=== PATIENT | male | born 1970 | race Hispanic/Latino ===

== ENCOUNTER 2016-12-14 19:54 | Inpatient (IN) | payer OTHER ==
--- NOTE | 2016-12-14 20:07 | ED PDOC ---
"Arrival/HPI - General Chief Complaint: Cough, Cold, Congestion Time Seen by Provider: 12/14/16 19:58 Historian: Patient - History of Present Illness Narrative History of Present Illness (Text): 12/14/16 20:00 Sima Dean is a 46 year old male, whose past medical history includes asthma , hyperglycemia, and hypertension, who presents to the emergency department complaining of a continuous cough and rhinorrhea since 3 days ago. Patient reports he feels pain on the right side of his throat, right ear, and has problem swallowing. He notes having an appointment with his PMD on Thursday but his symptoms became worse and needed to be evaluated. Patient denies fever, nausea, vomiting, headache, chest pain, abdominal pain, or other complaints. PMD: Dr. Alok Willis Time/Duration: < week (3 days) Symptom Onset: Sudden Symptom Course: Worsening Modifying Factors (Text): difficulty swallowing Associated Symptoms (Text): throat pain on right side, rhinorrhea, nasal congestion, cough Past Medical History - Provider Review Nursing Documentation Reviewed: Yes - Infectious Disease Hx of Infectious Diseases: None - Pulmonary Hx Asthma: Yes - Renal Hx Renal Disorder: (hypoglycemia) - Endocrine/Metabolic Other/Comment: hypoglycemia - Hematological/Oncological Hx Blood Transfusions: No - Integumentary Hx Dermatological Disorder: Yes (MRSA) - Musculoskeletal/Rheumatological Hx Falls: No - Psychiatric Hx Depression: No Hx Emotional Abuse: No Hx Physical Abuse: No Hx Substance Use: No - Anesthesia Hx Anesthesia Reactions: Yes (vomiting) - Suicidal Assessment Feels Threatened In Home Enviroment: No Family/Social History - Physician Review Nursing Documentation Reviewed: Yes Family/Social History: Unknown Family HX Smoking Status: Never Smoked Hx Alcohol Use: Yes Hx Substance Use: No Hx Substance Use Treatment: No Allergies/Home Meds Allergies/Adverse Reactions: Allergies peanut Allergy (Verified 12/14/16 20:04) URTICARIA Penicillins Allergy (Verified 12/14/16 20:04) RASH Home Medications: Home Meds Medication Instructions Recorded Confirmed Albuterol Sulfate [Albuterol Hfa] 0.09 mg IH DAILY PRN 08/17/11 12/14/16 Fluticasone Furoate [Arnuity 100 mcg IH DAILY 12/14/16 12/14/16 Ellipta] Fluticasone Propionate [Flovent 50 mcg MELLISSA DAILY 12/14/16 12/14/16 Diskus] Levocetirizine Dihydrochloride 5 mg PO DAILY PRN 12/14/16 12/14/16 [Xyzal] Metoclopramide HCl [Reglan] 10 mg PO BID 12/14/16 12/14/16 Metoprolol Succinate [Toprol XL] 50 mg PO DAILY 12/14/16 12/14/16 Pantoprazole Sodium [Protonix] 40 mg PO DAILY 12/14/16 12/14/16 Promethazine/Codeine 10 ml PO Q6 PRN 12/14/16 12/14/16 [Codeine/Promethazine 10 MG/5 Ml-6.25 MG/5 Ml] Tiotropium Br/Olodaterol HCl 4 gm IH DAILY 12/14/16 12/14/16 [Stiolto Respimat Inhal [place]] amLODIPine [Norvasc] 5 mg PO DAILY 12/14/16 12/14/16 methylPREDNISolone 4 mg PO DAILY 12/14/16 12/14/16 [Methylprednisolone] Review of Systems - Physician Review All systems were reviewed & negative as marked: Yes - Review of Systems Constitutional: absent: Fevers ENT: Sore Throat, Rhinorrhea, Sinus Congestion Respiratory: Cough Cardiovascular: absent: Chest Pain Gastrointestinal: absent: Abdominal Pain, Diarrhea, Nausea, Vomiting Genitourinary Male: absent: Dysuria Neurological: absent: Headache, Dizziness Physical Exam Vital Signs Reviewed: Yes Vital Signs Temp Pulse Resp BP Pulse Ox 12/14/16 19:55 98.8 F 113 H 20 126/90 97 Temperature: Afebrile Blood Pressure: Normal Pulse: Tachycardic Respiratory Rate: Normal Appearance: Positive for: Ill-Appearing, Other (patient with intermittent barky cough; no stridor) Pain Distress: None Mental Status: Positive for: Alert and Oriented X 3 - Systems Exam Head: Present: Atraumatic, Normocephalic Pupils: Present: PERRL Conjunctiva: Present: Normal Ears: Present: Normal, NORMAL TM. No: Erythema Pharnyx: Present: ERYTHEMA, EXUDATE, TONSILS ENLARGED (right tonsil enlarged with pus and swelling ), Uvular Deviation (mild), Muffled/Hoarse Voice ( slightly muffled). No: Peritonsilar Swelling, Strider, Soft Palate/Uvular Edema Neck: Present: Normal Range of Motion. No: Meningeal Signs Respiratory/Chest: Present: Clear to Auscultation, Good Air Exchange. No: Respiratory Distress, Accessory Muscle Use Cardiovascular: Present: Regular Rate and Rhythm, Normal S1, S2. No: Murmurs Abdomen: Present: Normal Bowel Sounds. No: Tenderness, Distention, Peritoneal Signs Upper Extremity: Present: Normal Inspection. No: Cyanosis, Edema Lower Extremity: Present: Normal Inspection. No: Edema Neurological: Present: GCS=15, CN II-XII Intact, Speech Normal Skin: Present: Warm, Dry, Normal Color. No: Rashes Psychiatric: Present: Alert, Oriented x 3, Normal Insight, Normal Concentration Medical Decision Making ED Course and Treatment: 12/14/16 Impression: 46 year old male with noted history with noted exam on tonsillar findings. Plan: -- CT neck -- Chest X-ray -- Labs -- Atrovent, Decadron, Toradol, Xopenex, and Sodium Chloride -- Clindamycin, Vancomycin -- Racemic epinephrine -- Reassess and disposition Progress Notes: 12/14/16 23:16 Patient with noted history - patient's cough improved with racemic epinephrine. Labs with significant leukocytosis of 27K; CT results as noted below with significant abscess with mass erffect on airway; given mass effect on airway, will admit to the ICU for close monitoring. Case was discussed with ENT, Dr. Carr and his resident as well; patient will be seen early in the morning for drainage. Case also discussed with Dr. Juan Willis for admission on his service. Case also discussed with Dr. Hodgson for admission to the ICU. CT Neck with IV Contrast: FINDINGS: Nasopharynx: Unremarkable. Oropharynx: Decreased attenuation within the right lingual tonsil measuring 1.9 x 3.6 x 3.9 cm (anterior to posterior by medial to lateral by cranial to caudal dimension ), findings consistent with a tonsillar abscess. Mass effect on the airway is detected. Hypopharynx: Unremarkable. SIMA DEAN | Final Radiology Report CONFIDENTIALITY STATEMENT This report is intended only for use by the referring physician, and only in accordance with law. If you received this in error, call [phone]. Page 2 of 2 Larynx: Normal epiglottis. Trachea: Unremarkable. Retropharyngeal space: No retropharyngeal abscess. Submandibular/parotid glands: Glands are normal in size. Thyroid: Unremarkable. Bones/joints: No acute fracture. Soft tissues: As above. Vasculature: No acute findings. Lymph nodes: Enlarged right-sided submandibular nodes are detected, the largest measuring 17 mm in short axis dimension. Lung apices: Unremarkable as visualized. IMPRESSION: Right-sided tonsillar abscess with measurements as detailed above. Mass effect on the airway is detected. - Critical Care Critical Care Minutes: 30 minutes - Lab Interpretations Lab Results: 12/14/16 20:15 12/14/16 20:15 Lab Results 12/14/16 20:20: Grp A Beta Strep Ag Negative 12/14/16 20:15: Sodium 142, Potassium 4.2, Chloride 100, Carbon Dioxide 32, Anion Gap 14, BUN 16, Creatinine 1.3, Est GFR ( Amer) > 60, Est GFR (Non- Af Amer) 60, Random Glucose 106, Calcium 9.6, Total Bilirubin 0.6, AST 26, ALT 37, Alkaline Phosphatase 88, Lactate Dehydrogenase 420, Total Creatine Kinase 90 , Troponin I < 0.01, NT-Pro-B Natriuret Pep 135, Total Protein 8.0, Albumin 4.6 , Globulin 3.4, Albumin/Globulin Ratio 1.4, Lipase 99 12/14/16 20:15: WBC 27.1 H* D, RBC 5.19, Hgb 14.3, Hct 43.6, MCV 84.0, MCH 27.6 , MCHC 32.8, RDW 13.8, Plt Count 321, MPV 9.0, Gran % 86.8 H, Lymph % (Auto) 5.3 L, [place] % (Auto) 7.7 H, Eos % (Auto) 0.1 L, Baso % (Auto) 0.1, Gran # 23.54 H, Lymph # 1.4, [place] # 2.1 H, Eos # 0.0, Baso # 0.02, Neutrophils % (Manual) 73 H, Band Neutrophils % 5 H, Lymphocytes % (Manual) 17 L, Monocytes % (Manual) 5, Platelet Evaluation Normal 12/14/16 20:15: PT 11.4, INR 1.06, APTT 28.8 I have reviewed the lab results: Yes - RAD Interpretation Radiology Orders: 12/14/16 20:09 NECK SOFT TISSUE W/CONTRAST [CT] Stat 12/14/16 20:10 CHEST PORTABLE [RAD] Stat - Medication Orders Current Medication Orders: Discontinued Medications Dexamethasone (Decadron Inj) 10 mg IVP STAT STA Stop: 12/14/16 20:11 Last Admin: 12/14/16 20:32 Dose: 10 mg IVP Administration Document 12/14/16 20:32 JOL (Rec: 12/14/16 20:32 JOL [id number]) Charges for Administration # of IVP Administrations 1 Sodium Chloride (Sodium Chloride 0.9%) 1,000 mls @ 999 mls/hr IV .Q1H1M STA Stop: 12/14/16 21:12 Last Admin: 12/14/16 20:30 Dose: 999 mls/hr eMAR Start Stop Document 12/14/16 20:30 JOL (Rec: 12/14/16 20:32 JOL [id number]) Intravenous Solution Start Date 12/14/16 Start Time 20:32 End Date 12/14/16 End time 21:32 Total Infusion Time 60 Clindamycin Phosphate 600 mg/ (Sodium Chloride) 54 mls @ 108 mls/hr IVPB STAT STA PRN Reason: Protocol Stop: 12/14/16 21:08 Last Admin: 12/14/16 21:35 Dose: 108 mls/hr eMAR Start Stop Document 12/14/16 21:35 JOL (Rec: 12/14/16 22:14 JOL [id number]) Intravenous Solution Start Date 12/14/16 Start Time 21:35 End Date 12/14/16 End time 22:05 Total Infusion Time 30 Vancomycin HCl 1 gm/ Sodium (Chloride) 250 mls @ 133.333 mls/hr IV STAT STA PRN Reason: Protocol Stop: 12/14/16 22:34 Last Admin: 12/14/16 22:16 Dose: 133.333 mls/hr eMAR Start Stop Document 12/14/16 22:16 JOL (Rec: 12/14/16 22:16 JOL [id number]) Intravenous Solution Start Date 12/14/16 Start Time 22:16 End Date 12/14/16 End time 23:46 Total Infusion Time 90 Ipratropium Norco (Atrovent) 0.5 mg IH STAT STA Stop: 12/14/16 20:13 Last Admin: 12/14/16 20:33 Dose: 0.5 mg Ketorolac Tromethamine (Toradol) 30 mg IVP STAT STA Stop: 12/14/16 20:11 Last Admin: 12/14/16 20:32 Dose: 30 mg MAR Pain Assessment Document 12/14/16 20:32 JOL (Rec: 12/14/16 20:32 JOL [id number]) Pain Reassessment Is this a pain reassessment? No Sleep Is patient sleeping during reassessment? No Pain Scale Used Pain Scale Used Numeric Location Pain Location Body Cessation Systems Outreach Specialist Description Intensity of Pain at present 7 IVP Administration Document 12/14/16 20:32 JOL (Rec: 12/14/16 20:32 JOL [id number]) Charges for Administration # of IVP Administrations 1 Re-Assess: [facility] Pain Assessment Document 12/14/16 21:32 JOL (Rec: 12/14/16 22:16 JOL [id number]) Pain Reassessment Is this a pain reassessment? Yes Sleep Is patient sleeping during reassessment? No Presence of Pain Presence of Pain No Levalbuterol HCl (Xopenex) 1.25 mg IH STAT STA Stop: 12/14/16 20:13 Last Admin: 12/14/16 20:33 Dose: 1.25 mg Racepinephrine (Racepinephrine 2.25% Inhl Soln) 0.5 ml IH STAT STA Stop: 12/14/16 21:44 Last Admin: 12/14/16 21:50 Dose: 0.5 ml - Scribe Statement The provider has reviewed the documentation as recorded by the Lemuel Saxena Provider Scribe Attestation: All medical record entries made by the Scribe were at my direction and personally dictated by me. I have reviewed the chart and agree that the record accurately reflects my personal performance of the history, physical exam, medical decision making, and the department course for this patient. I have also personally directed, reviewed, and agree with the discharge instructions and disposition. Disposition/Present on Arrival - Present on Arrival Any Indicators Present on Arrival: No History of DVT/PE: No History of Uncontrolled Diabetes: No Urinary Catheter: No History of Decub. Ulcer: No History Surgical Site Infection Following: None - Disposition Have Diagnosis and Disposition been Completed?: Yes Diagnosis: Tonsillar abscess Disposition: HOSPITALIZED Disposition Time: 21:30 Patient Plan: Admission, ICU Condition: SERIOUS Forms: [employer] ([place]gas[place])"
[2016-12-14] MEDS ORDERED: Ipratropium 0.02% Inhal Soln (0.5 mg/2.5 ml) UD IH STA (20:12)
[2016-12-14] MEDS ORDERED: Sodium Chloride 0.9% 1,000 ML IV STA (20:12)
[2016-12-14] MEDS ORDERED: Levalbuterol 1.25 MG/3 ML Inhal Soln UD IH STA (20:12)
[2016-12-14 20:36] LABS: BASO # 0.02 K/mm3 (0.0-2.0); BASO % 0.1 % (0.0-3.0); EOS % 0.1 % (1.5-5.0); GRAN # 23.54 (1.4-6.5); GRAN % 86.8 % (50.0-68.0); HEMATOCRIT 43.6 % (42.0-52.0); LYMPH # 1.4 (1.2-3.4); LYMPH % 5.3 % (22.0-35.0); MEAN CORPUSCULAR HEMOGLOBIN 27.6 pg (25.0-35.0); MEAN CORPUSCULAR HGB CONC 32.8 g/dl (31.0-37.0); MONO # 2.1 (0.1-0.6); MONO % 7.7 % (1.0-6.0); PLATELET COUNT 321 10^3/uL (120.0-450.0); RED CELL DISTRIBUTION WIDTH 13.8 % (11.5-14.5)
[2016-12-14 20:38] LABS: WHITE BLOOD COUNT 27.1 10^3/ul (4.5-11.0)
[2016-12-14 20:42] LABS: INR 1.06 (0.93-1.08); PARTIAL THROMBOPLASTIN TIME 28.8 Seconds (23.7-30.8)
[2016-12-14 20:44] LABS: ALB/GLOB RATIO 1.4 (1.1-1.8); ALKALINE PHOSPHATASE 88 U/L (38-126); ALT/SGPT 37 U/L (7-56); AST/SGOT 26 U/L (17-59); BILIRUBIN,TOTAL 0.6 mg/dL (0.2-1.3); BLOOD UREA NITROGEN 16 mg/dL (7-21); CALCIUM 9.6 mg/dL (8.4-10.5); CARBON DIOXIDE 32 mmol/L (21-33); CHLORIDE 100 mmol/L (98-107); GFR AFRICAN-AMERICAN > 60; GLUCOSE,RANDOM 106 mg/dL (70-110); LIPASE 99 U/L (23-300); POTASSIUM 4.2 mmol/L (3.6-5.0); SODIUM 142 mmol/L (132-148)
[2016-12-14 21:00] LABS: TROPONIN I < 0.01 ng/mL
[2016-12-14] MEDS ORDERED: Iodixanol 320 MG/ML 100 ML BOTTLE IV ONE (21:11)
[2016-12-14] MEDS ORDERED: Racepinephrine 2.25% Inhal Soln 0.5 ML UD IH STA (21:43)
[2016-12-14] MEDS ORDERED: Racepinephrine 2.25% Inhal Soln 0.5 ML UD ONE (21:46)
[2016-12-14 22:22] LABS: BAND 5 % (0-2); NEUTROPHIL 73 % (50.0-70.0); PLATELET ESTIMATE NORMAL (NORMAL)
--- NOTE | 2016-12-14 23:00 | CT ---
EXAM: CT Neck With Intravenous Contrast CLINICAL HISTORY: 46 years old, male; Pain; Throat pain; Additional info: Change in voice, SOB - R/O peritonsillar abscess TECHNIQUE: Axial computed tomography images of the neck with intravenous contrast. All CT scans at this facility use one or more dose reduction techniques, viz.: automated exposure control; ma/kV adjustment per patient size (including targeted exams where dose is matched to indication; i.e. head); or iterative reconstruction technique. Sagittal reformatted images were created and reviewed. CONTRAST: 100 mL of OMNI 350 administered intravenously. COMPARISON: No relevant prior studies available. FINDINGS: Nasopharynx: Unremarkable. Oropharynx: Decreased attenuation within the right lingual tonsil measuring 1.9 x 3.6 x 3.9 cm (anterior to posterior by medial to lateral by cranial to caudal dimension ), findings consistent with a tonsillar abscess. Mass effect on the airway is detected. Hypopharynx: Unremarkable. Larynx: Normal epiglottis. Trachea: Unremarkable. Retropharyngeal space: No retropharyngeal abscess. Submandibular/parotid glands: Glands are normal in size. Thyroid: Unremarkable. Bones/joints: No acute fracture. Soft tissues: As above. Vasculature: No acute findings. Lymph nodes: Enlarged right-sided submandibular nodes are detected, the largest measuring 17 mm in short axis dimension. Lung apices: Unremarkable as visualized. IMPRESSION: Right-sided tonsillar abscess with measurements as detailed above. Mass effect on the airway is detected.
--- NOTE | 2016-12-15 00:04 | CP.PCM.CON ---
Addendum entered and electronically signed by Miryam Conroy DO 12/15/16 04:20: Patient started on Morphine and Toradol was discontinued Original Note: <Miryam Conroy - Last Filed: 12/15/16 01:21> History of Present Illness - History of Present Illness History of Present Illness: 46yo male PMHx HTN, asthma, and hypoglycemia presents with worsening neck pain and headache for 1 week. Patient reports he felt like his "sinuses were on fire " and he complained of a 11/10 headache that was global and sharp in nature. He was taking prednisone at home which did not help. Patient reported worsening sore throat on the right side and some right ear pain. He denied any fever, chills, drooling, difficulty eating/drinking liquids, trismus, and foul breath. Patient did admit to a chronic nonproductive cough and SOB which he associated with his history of asthma. Patient also denied any chills, dizziness, chest pain, palpitations, abd pain, nausea, vomiting, bowel/bladder complaints, pain/ swelling in his legs bilaterally. He denied any recent travel and sick contacts. PMD: Lazaro - last seen >1 mo ago PMHx: HTN, asthma, and hypoglycemia PSurgHx: RLE abscess? Family Hx: denies Social Hx: denies tobacco and drug use- drinks EtOH socially over the weekends Allergy: peanuts, PCN Meds: pls see medical record Review of Systems - Constitutional Constitutional: As Per HPI, Headache. absent: Chills, Fever - EENT Eyes: As Per HPI. absent: Change in Vision Ears: As Per HPI, Ear Pain (Right ear). absent: Ear Discharge, Dizziness Nose/Mouth/Throat: As Per HPI, Hoarsness, Sore Throat, Neck Pain. absent: Dysphagia, Halitosis, Lip Swelling, Odynophagia, Tongue Swelling - Cardiovascular Cardiovascular: As Per HPI. absent: Chest Pain, Dyspnea, Edema - Respiratory Respiratory: As Per HPI, Cough, Dyspnea - Gastrointestinal Gastrointestinal: As Per HPI. absent: Abdominal Pain, Constipation, Diarrhea, Nausea, Vomiting - Genitourinary Genitourinary: As Per HPI. absent: Dysuria - Musculoskeletal Musculoskeletal: As Per HPI. absent: Numbness, Tingling - Integumentary Integumentary: As Per HPI. absent: Rash - Neurological Neurological: As Per HPI, Headaches. absent: Dizziness, Numbness, Tingling - Psychiatric Psychiatric: As Per HPI, Anxiety - Hematologic/Lymphatic Hematologic: As Per HPI. absent: Easy Bleeding, Easy Bruising Past Patient History - Infectious Disease Hx of Infectious Diseases: None - Past Social History Smoking Status: Never Smoked - PULMONARY Hx Asthma: Yes - RENAL Hx Chronic Kidney Disease: (hypoglycemia) - ENDOCRINE/METABOLIC Other/Comment: hypoglycemia - HEMATOLOGICAL/ONCOLOGICAL Hx Blood Transfusions: No - INTEGUMENTARY Hx Dermatological Problems: Yes (MRSA) - MUSCULOSKELETAL/RHEUMATOLOGICAL Hx Falls: No - PSYCHIATRIC Hx Depression: No Hx Emotional Abuse: No Hx Physical Abuse: No Hx Substance Use: No - SURGICAL HISTORY Hx Surgeries: Yes - ANESTHESIA Hx Anesthesia Reactions: Yes (vomiting) Meds Allergies/Adverse Reactions: Allergies Allergy/AdvReac Type Severity Reaction Status Date / Time Iodine and Iodide Containing Allergy Intermediate COUGH Verified 12/15/16 06:17 Produc peanut Allergy URTICARIA Verified 12/14/16 20:04 Penicillins Allergy RASH Verified 12/14/16 20:04 Physical Exam - Constitutional Appears: Non-toxic, No Acute Distress - Head Exam Head Exam: ATRAUMATIC, NORMOCEPHALIC - Eye Exam Eye Exam: EOMI, Normal appearance, PERRL. absent: Conjunctival injection, Scleral icterus - ENT Exam ENT Exam: Mucous Membranes Dry - Expanded ENT Exam Expanded Mouth exam: muffled voice. absent: drooling, trismus Throat exam: Tonsillar Erythema, Tonsillar Exudate - Neck Exam Neck exam: Positive for: Full Rom - Respiratory Exam Respiratory Exam: Clear to Auscultation Bilateral, NORMAL BREATHING PATTERN. absent: Rales, Rhonchi, Wheezes, Respiratory Distress - Cardiovascular Exam Cardiovascular Exam: REGULAR RHYTHM, RRR, +S1, +S2. absent: Systolic Murmur - GI/Abdominal Exam GI & Abdominal Exam: Normal Bowel Sounds, Soft. absent: Firm, Guarding, Tenderness - Extremities Exam Extremities exam: Positive for: normal capillary refill, normal inspection, pedal pulses present. Negative for: pedal edema - Neurological Exam Neurological exam: Alert, Oriented x3 - Psychiatric Exam Psychiatric exam: Anxious - Skin Skin Exam: Diaphoretic, Intact, Normal Color Results - Vital Signs Recent Vital Signs: Last Vital Signs Temp 98.8 F 12/14/16 19:55 Pulse 113 H 12/14/16 19:55 Resp 20 12/14/16 19:55 BP 126/90 12/14/16 19:55 Pulse Ox 97 12/14/16 19:55 - Labs Result Diagrams: 12/14/16 20:15 12/14/16 20:15 Assessment & Plan - Assessment and Plan (Free Text) Assessment: 46yo male PMHx HTN, asthma, and hypoglycemia presents with worsening neck pain and headache for 1 week. Plan: R Tonsillar Abscess - Neck CT with IV contrast: R sided tonsillar abscess 1.9 x 3.6 x 3.9cm with mass effect on the airway - Clindamycin 600mg ivpb q8 - Toradol 30mg ivp q6 prn pain - Group A beta strep Ag: negative - f/u blood culture - f/u throat culture - Head above 30 degrees - Monitor breathing - ENT Dr. Carr consulted- patient for OR in the AM Hx of HTN - hold home meds Hx of asthma - continue home meds Hx of hypoglycemia - D5NS @ 100cc/hr - Accucheck GI ppx: Protonix 40mg ivp qdaily; Florastor 1 tab po bid DVT ppx: SCDs Fluids: D5NS @ 100cc/hr Diet: NPO for OR in the AM Case discussed with Dr. Rema Conroy PGY2 <Rema SALAZAR,Jason - Last Filed: 12/15/16 12:49> Meds - Medications Medications: Current Medications Albuterol Sulfate (Albuterol 0.083% Inhal [place] (2.5 Mg/3 Ml) Ud) 2.5 mg IH DAILY PRN PRN Reason: Shortness of Breath Dexamethasone (Decadron Inj) 4 mg IVP Q6 [facility] Stop: 12/16/16 12:01 Fluticasone Propionate (Flonase) 1 actuation NS DAILY [facility] Last Admin: 12/15/16 09:49 Dose: 1 spray Clindamycin Phosphate 600 mg/ (Sodium Chloride) 54 mls @ 102 mls/hr IVPB Q8 [facility] PRN Reason: Protocol Last Admin: 12/15/16 05:04 Dose: 102 mls/hr Dextrose/Sodium Chloride (Dextrose 5%/0.9% Ns 1000 Ml) 1,000 mls @ 85 mls/hr IV .[id number] [facility] Lactobacillus Acidophilus (Bacid Acidophilus) 1 cap PO BID [facility] Morphine Sulfate (Morphine) 1 mg IVP Q6H PRN PRN Reason: Pain, moderate (4-7) Non-Formulary Medication (Fluticasone Furoate [Arnuity Ellipta]) 100 mcg IH DAILY [facility] Pantoprazole Sodium (Protonix Inj) 40 mg IVP DAILY [facility] Last Admin: 12/15/16 09:51 Dose: 40 mg Results - Vital Signs Recent Vital Signs: Last Vital Signs Temp 98.7 F 12/15/16 01:23 Pulse 89 12/15/16 06:00 Resp 17 12/15/16 01:23 BP 132/69 12/15/16 01:23 Pulse Ox 96 12/15/16 01:23 - Labs Result Diagrams: 12/15/16 05:00 12/15/16 05:00 Labs: Laboratory Results - last 24 hr 12/15/16 12/15/16 05:00 05:00 WBC 25.6 H* RBC 4.76 Hgb 13.1 L Hct 40.1 L MCV 84.2 MCH 27.5 MCHC 32.7 RDW 14.0 Plt Count 314 MPV 9.5 Gran % 95.2 H Lymph % (Auto) 2.9 L [place] % (Auto) 1.9 Eos % (Auto) 0.0 L Baso % (Auto) 0.0 Gran # 24.35 H Lymph # 0.7 L Walker # 0.5 Eos # 0.0 Baso # 0.01 Sodium 142 Potassium 4.6 Chloride 105 Carbon Dioxide 24 Anion Gap 18 BUN 21 Creatinine 1.0 Est GFR ( Amer) > 60 Est GFR (Non-Af Amer) > 60 Random Glucose 150 H Calcium 9.1 Phosphorus 4.4 Magnesium 2.2 Total Bilirubin 0.4 AST 21 ALT 31 Alkaline Phosphatase 83 Total Protein 7.1 Albumin 3.9 Globulin 3.1 Albumin/Globulin Ratio 1.3 Attending/Attestation - Attestation I have personally seen and examined this patient.: Yes I have fully participated in the care of the patient.: Yes I have reviewed all pertinent clinical information: Yes Notes (Text): -I agree with the above ICU consult note completed by the resident physician with the following additions and/or changes: -The patient is a 46 year old man with a history of asthma and hypoglycemia, being admitted to the ICU for right tonsillar abscess. ReneN.T. plans to perform an I.D. early tomorrow morning. Will keep pt NPO and on D5NS IVF's. Will also keep HOB>45 degrees. Empiric IV Clindamycin.
[2016-12-15] MEDS ORDERED: Sodium Chloride 0.9% 1,000 ML IV SCH (00:45)
[2016-12-15] MEDS ORDERED: DiphenhydrAMINE 50 mg/ml Inj IVP ONE (00:54)
[2016-12-15] MEDS ORDERED: Albuterol 0.083% Inhal Sol (2.5 mg/3 mL) UD IH PRN (01:15)
[2016-12-15] MEDS: Dextrose 5%/0.9% NS 1,000 ML IV SCH ×4 (01:16→21:54)
[2016-12-15] MEDS ORDERED: Morphine 4 mg/ml ISec IVP PRN (04:19)
[2016-12-15 06:03] LABS: BASO # 0.01 K/mm3 (0.0-2.0); GRAN # 24.35 (1.4-6.5); GRAN % 95.2 % (50.0-68.0); HEMATOCRIT 40.1 % (42.0-52.0); LYMPH # 0.7 (1.2-3.4); LYMPH % 2.9 % (22.0-35.0); MEAN CELL VOLUME 84.2 fl (80.0-105.0); MEAN CORPUSCULAR HEMOGLOBIN 27.5 pg (25.0-35.0); MEAN CORPUSCULAR HGB CONC 32.7 g/dl (31.0-37.0); MEAN PLATELET VOLUME 9.5 fl (7.0-11.0); MONO # 0.5 (0.1-0.6); MONO % 1.9 % (1.0-6.0)
[2016-12-15 06:21] LABS: WHITE BLOOD COUNT 25.6 10^3/ul (4.5-11.0)
[2016-12-15 06:47] LABS: ALB/GLOB RATIO 1.3 (1.1-1.8); ALKALINE PHOSPHATASE 83 U/L (38-126); ALT/SGPT 31 U/L (7-56); AST/SGOT 21 U/L (17-59); BILIRUBIN,TOTAL 0.4 mg/dL (0.2-1.3); BLOOD UREA NITROGEN 21 mg/dL (7-21); CALCIUM 9.1 mg/dL (8.4-10.5); CARBON DIOXIDE 24 mmol/L (21-33); CHLORIDE 105 mmol/L (98-107); GFR AFRICAN-AMERICAN > 60; GLUCOSE,RANDOM 150 mg/dL (70-110); MAGNESIUM 2.2 mg/dL (1.7-2.2); PHOSPHOROUS 4.4 mg/dL (2.5-4.5); POTASSIUM 4.6 mmol/L (3.6-5.0); SODIUM 142 mmol/L (132-148); TOTAL PROTEIN 7.1 g/dL (5.8-8.3)
--- NOTE | 2016-12-15 08:52 | RAD ---
HISTORY: Shortness of breath COMPARISON: No prior. FINDINGS: LUNGS: The lungs are well inflated and clear. PLEURA: No significant pleural effusion identified, no pneumothorax apparent. CARDIOVASCULAR: Normal. OSSEOUS STRUCTURES: No significant abnormalities. VISUALIZED UPPER ABDOMEN: Normal. OTHER FINDINGS: None. IMPRESSION: No active pulmonary disease.
[2016-12-15] MEDS: Fluticasone Nasal 50 mcg/Spray NS SCH (09:49)
[2016-12-15] MEDS ORDERED: FLUTICASONE FUROATE 100 MCG IH SCH (10:00)
--- NOTE | 2016-12-15 10:17 | CARD ---
APPROVED REPORT EKG Measurement Heart [id number] <Conclusion> Sinus tachycardia Moderate voltage criteria for LVH, may be normal variant Borderline ECG
--- NOTE | 2016-12-15 11:39 | CP.PCM.PN ---
Subjective - Date & Time of Evaluation Date of Evaluation: 12/15/16 Time of Evaluation: 07:15 - Subjective Subjective: Patient seen and examined, reports to be doing qwell. Patient s/p InD at bedside by ENT, please refer to their note. Tolerated the procedure well, denies sob, dysphagia, fever, chills, cough. Objective - Vital Signs/Intake and Output Vital Signs (last 24 hours): Temp Pulse Resp BP Pulse Ox 98.7 F 89 17 132/69 96 12/15/16 01:23 12/15/16 06:00 12/15/16 01:23 12/15/16 01:23 12/15/16 01:23 - Medications Medications: Current Medications Albuterol Sulfate (Albuterol 0.083% Inhal Lili (2.5 Mg/3 Ml) Ud) 2.5 mg IH DAILY PRN PRN Reason: Shortness of Breath Fluticasone Propionate (Flonase) 1 actuation NS DAILY [facility] Last Admin: 12/15/16 09:49 Dose: 1 spray Clindamycin Phosphate 600 mg/ (Sodium Chloride) 54 mls @ 102 mls/hr IVPB Q8 VELVET PRN Reason: Protocol Last Admin: 12/15/16 05:04 Dose: 102 mls/hr Dextrose/Sodium Chloride (Dextrose 5%/0.9% Ns 1000 Ml) 1,000 mls @ 85 mls/hr IV .[id number] VELVET Lactobacillus Acidophilus (Bacid Acidophilus) 1 cap PO BID VELVET Morphine Sulfate (Morphine) 1 mg IVP Q6H PRN PRN Reason: Pain, moderate (4-7) Non-Formulary Medication (Fluticasone Furoate [Arnuity Ellipta]) 100 mcg IH DAILY [facility] Pantoprazole Sodium (Protonix Inj) 40 mg IVP DAILY [facility] Last Admin: 12/15/16 09:51 Dose: 40 mg - Labs Labs: 12/15/16 05:00 12/15/16 05:00 PT 11.4 Seconds (9.9-11.8) 12/14/16 20:15 INR 1.06 (0.93-1.08) 12/14/16 20:15 APTT 28.8 Seconds (23.7-30.8) 12/14/16 20:15 - Constitutional Appears: Well, Non-toxic, No Acute Distress - Head Exam Head Exam: ATRAUMATIC, NORMAL INSPECTION - Eye Exam Eye Exam: EOMI, Normal appearance - Neck Exam Neck Exam: Full ROM, Normal Inspection - Respiratory Exam Respiratory Exam: Clear to Ausculation Bilateral, NORMAL BREATHING PATTERN - Cardiovascular Exam Cardiovascular Exam: REGULAR RHYTHM, RRR, +S1, +S2 - GI/Abdominal Exam GI & Abdominal Exam: Soft, Normal Bowel Sounds - Extremities Exam Extremities Exam: Normal Inspection Assessment and Plan - Assessment and Plan (Free Text) Assessment: 46yo male a/w R tonsilar abscess Tonsilar Abscess Asthma - currently abfebrile, HD stable - s/p InD at bedside by ENT, tolerated procedure well Recommend: - IV Clindamycin, patient PCN allergic ( NO MRSA risk factors) - Speech swallow eval - Duonebs PRN - follow up ENT - resume diet if passes speech swallow - DVT ppx - GI ppx - transfer to medical floor
[2016-12-15] MEDS ORDERED: Albuterol-Ipratrop 3 mg / 0.5 (3 ml) UD IH PRN (13:23)
--- NOTE | 2016-12-15 15:05 | CARD ---
APPROVED REPORT EKG Measurement Heart [id number] <Conclusion> Normal sinus rhythm
[2016-12-15] MEDS: Dexamethasone 4 mg/1 ml IVP SCH (17:05)
[2016-12-15] MEDS: Lactobacillus Acidophilus 500 MU Cap PO SCH (17:05)
[2016-12-15 18:07] VITALS: RESP 20
--- NOTE | 2016-12-15 18:53 | CON ---
DATE: 12/15/2016 EAR, NOSE, AND THROAT CONSULT REASON FOR CONSULTATION: Peritonsillar abscess. HISTORY OF PRESENT ILLNESS: The patient is a 46-year-old male with history of hypertension, asthma, who presents with right-sided throat pain for apparently one-week. He says that initially he was treated with supportive care at home, however, he had worsening of the pain especially on the right hand side with some difficulty swallowing and therefore, presented to the emergency room for further evaluation and underwent a cath scan, which demonstrated a right peritonsillar abscess and Ear, Nose, and Throat was just consulted for further evaluation. PAST MEDICAL HISTORY: As above. PAST SURGICAL HISTORY: I and D of a lower extremity abscess. ALLERGIES: PENICILLIN AND PEANUTS. SOCIAL HISTORY: Denies tobacco abuse. Social alcohol user. PHYSICAL EXAMINATION GENERAL: The patient is awake, alert and oriented x3, in no acute distress. Slightly muffled quality of voice. VITAL SIGNS: Blood pressure 132/69, temperature 98.7, heart rate 79, respiratory rate 17, saturating 96% on room air. HEENT: Head is atraumatic and normocephalic. Eyes: Extraocular muscles are intact. Normal appearance. No visual changes. Nose, nares patent bilaterally. No apparent discharged noted. Oral cavity: Oropharynx. Very poor dentition. Tonsils with exudates bilaterally. Right tonsil is slightly medialized, but no uvula deviation, some cellulitis noted to the soft palate on the right hand side. NECK: Shotty lymphadenopathy. Trachea midline. No stridor. PROCEDURE: Needle drainage of peritonsillar abscess, the back of the throat was numbed with topical Cetacaine spray and then an 18 gauge needle and a 10 mL syringe was inserted into the right peritonsillar space multiple times. Scant purulent drainage totalling 3-4 mL was removed with resolution of pain on the patient's throat. ASSESSMENT AND PLAN: The patient is a 46-year-old male with right peritonsillar abscess, status post drainage. I discussed with the patient that he should likely stay for another 24 hours with IV antibiotics as well as IV steroids, could continue on Clindamycin IV as well as 4 mg of Decadron every 6 hours. Tomorrow, if the patient continues to improve and is able to swallow and tolerate diet, he could be discharged home on a one week course of oral clindamycin as well as a Medrol Dosepak. He should follow up in the office on Thursday of this week to track resolution of his abscess, as it is possible for these to reaccumulate. This was discussed with him in detail, discussed with the nurse at bedside, discussed with ICU house staff. Thank you for allowing us to participate in this patient's care. Gary Vasquez DO
[2016-12-16] MEDS: Dexamethasone 4 mg/1 ml IVP SCH ×3 (00:40→12:57)
[2016-12-16 06:07] LABS: BASO # 0.01 K/mm3 (0.0-2.0); BASO % 0.1 % (0.0-3.0); GRAN # 13.8 (1.4-6.5); GRAN % 90.4 % (50.0-68.0); HEMATOCRIT 38.4 % (42.0-52.0); LYMPH # 0.9 (1.2-3.4); LYMPH % 5.6 % (22.0-35.0); MEAN CELL VOLUME 84.2 fl (80.0-105.0); MEAN CORPUSCULAR HEMOGLOBIN 27.4 pg (25.0-35.0); MEAN CORPUSCULAR HGB CONC 32.6 g/dl (31.0-37.0); MEAN PLATELET VOLUME 9.3 fl (7.0-11.0); MONO # 0.6 (0.1-0.6); MONO % 3.9 % (1.0-6.0); RED CELL DISTRIBUTION WIDTH 13.9 % (11.5-14.5); WHITE BLOOD COUNT 15.3 10^3/ul (4.5-11.0)
[2016-12-16 06:57] LABS: BLOOD UREA NITROGEN 19 mg/dL (7-21); CARBON DIOXIDE 25 mmol/L (21-33); CHLORIDE 105 mmol/L (95-110); GFR AFRICAN-AMERICAN > 60; GLUCOSE,RANDOM 137 mg/dL (70-110); POTASSIUM 4.7 mmol/L (3.6-5.0); SODIUM 141 mmol/L (132-148)
[2016-12-16] MEDS ORDERED: Pantoprazole 40 mg EC Tab PO SCH (10:00)
[2016-12-16] MEDS: Lactobacillus Acidophilus 500 MU Cap PO SCH ×2 (10:20→18:30)
[2016-12-16] MEDS: Fluticasone Nasal 50 mcg/Spray NS SCH (11:00)
[2016-12-16] MEDS: Dextrose 5%/0.9% NS 1,000 ML IV SCH (14:31)
[2016-12-16 17:03] VITALS: BP 127/87; PULSE 73; TEMP 97.9; O2SAT 94
--- NOTE | 2016-12-17 18:29 | DS ---
HOSPITAL COURSE: This is a 46-year-old male who presented to the emergency room late Thursday night with sore throat and found to have a peritonsillar abscess on CT scan. He was admitted to intensive care and seen on Thursday morning by Dr. Alok Willis as well as by Ear, Nose and Throat hematology oncology consultant surgeon, Dr. Carr. I&D of the abscess was performed. The patient was transferred from ICU at the recommendation of ENT and stayed for an additional 24 hours of IV antibiotics. His diet was increased. He tolerated liquids well and ready for discharge late tonight. He was seen on Thursday evening. He was awake, alert, clear and appropriate, swallowing well with no compromise to his voice or airway. He was afebrile. White count had come down. Prescriptions were called in for Medrol Dosepak as well as for oral clindamycin. He was instructed to see Dr. Carr on Thursday, follow up with us on Thursday, and probable return to work on Thursday. FINAL DISCHARGE DIAGNOSIS: Peritonsillar retropharyngeal abscess. Sumeet Willis MD
== END 2016-12-16 19:13 | disposition home or self-care (01) | DRG 134 ==
LOC: ED 19:54 → ERH 23:12 → CCU 12-15 00:50 → 3RSO 12-15 13:54
PROVIDERS: ADMIT Internal Medicine; ATTEND Internal Medicine
PROC: 0C9PXZZ Drainage of Tonsils, External Approach (ICD-10-PCS; principal; 2016-12-15)
DX: J36 Peritonsillar abscess (principal); R13.10 Dysphagia, unspecified; I12.9 Hypertensive chronic kidney disease with stage 1 through stage 4 chronic kidney disease, or unspecified chronic kidney disease; J45.909 Unspecified asthma, uncomplicated; N18.9 Chronic kidney disease, unspecified; E16.2 Hypoglycemia, unspecified; Z79.899 Other long term (current) drug therapy; Z88.0 Allergy status to penicillin; Z91.010 Allergy to peanuts; R40.2412 Glasgow coma scale score 13-15, at arrival to emergency department; B95.4 Other streptococcus as the cause of diseases classified elsewhere

== ENCOUNTER 2017-07-30 07:15 | Emergency (ER) | payer OTHER ==
[2017-07-30 07:56] VITALS: PULSE 90; TEMP 98
--- NOTE | 2017-07-30 08:07 | ED PDOC ---
Arrival/HPI - General Historian: Patient - History of Present Illness Time/Duration: Prior to Arrival Symptom Onset: Gradual Quality: Aching Severity Level: 7 Activities at Onset: Rest Context: Home - General Chief Complaint: Abnormal Skin Integrity Time Seen by Provider: 07/30/17 07:41 - History of Present Illness Narrative History of Present Illness (Text): 07/30/17 08:08 Patient is a 46 M with history of asthma, hypogylcemia, and hypertension who presents with complaints of right lower leg wound. Patient states yesterday he noticed a pimple on his right lower mid calf , he states he possibly may have scratched it. Does not recall whether it started as a insect bite however states that this morning he woke up and noticed wound had purulent drainage. Denies bleeding from wound aside from blood found on bandaid patient had placed the day prior. Rates pain 7/10, describing it as dull and non radiating. Pain is exacerbated with walking and patient has not taken any pain medication for relief. To note patient did have an abscess on same leg 4 years prior which required I&D; wound at the time was noted to be MRSA (+). (Apolinar Gibbons) Past Medical History - Provider Review Nursing Documentation Reviewed: Yes - Infectious Disease Hx of Infectious Diseases: None - Cardiac Hx Hypertension: Yes - Pulmonary Hx Asthma: Yes - Renal Hx Renal Disorder: (hypoglycemia) - Endocrine/Metabolic Other/Comment: hypoglycemia - Hematological/Oncological Hx Blood Transfusions: No - Integumentary Hx Dermatological Disorder: Yes (MRSA) - Musculoskeletal/Rheumatological Hx Falls: No - Psychiatric Hx Depression: No Hx Emotional Abuse: No Hx Physical Abuse: No Hx Substance Use: No - Surgical History Other/Comment: 2014: Pt. had cellulitis in left leg. Hospitalized in [facility] [place]. - Anesthesia Hx Anesthesia Reactions: Yes (vomiting) - Suicidal Assessment Feels Threatened In Home Enviroment: No Family/Social History - Physician Review Nursing Documentation Reviewed: Yes Family/Social History: Other (non-contributory) Smoking Status: Never Smoked Hx Alcohol Use: Yes Frequency of alcohol use: Socially Hx Substance Use: No Hx Substance Use Treatment: No Allergies/Home Meds Allergies/Adverse Reactions: Allergies Iodine and Iodide Containing Produc Allergy (Intermediate, Verified 07/30/17 07: 32) COUGH Sweating, cold, clammy skin peanut Allergy (Verified 07/30/17 07:32) URTICARIA Penicillins Allergy (Verified 07/30/17 07:32) RASH Home Medications: Home Meds Medication Instructions Recorded Confirmed Albuterol Sulfate [Albuterol 0.09 mg IH DAILY PRN 08/17/11 07/30/17 Sulfate Hfa] Metoprolol Succinate [Toprol XL] 50 mg PO DAILY 12/14/16 07/30/17 amLODIPine [Norvasc] 5 mg PO DAILY 12/14/16 07/30/17 Review of Systems - Review of Systems Constitutional: absent: Fatigue, Fevers Respiratory: absent: SOB, Cough Cardiovascular: absent: Chest Pain, Palpitations Gastrointestinal: absent: Diarrhea, Nausea, Vomiting Musculoskeletal: absent: Arthralgias, Back Pain Skin: Cellulitis. absent: Rash, Laceration, Abscess Neurological: absent: Headache, Dizziness Physical Exam Vital Signs Reviewed: Yes Temperature: Afebrile Blood Pressure: Normal Pulse: Regular Respiratory Rate: Normal Appearance: Positive for: Well-Appearing, Non-Toxic, Comfortable Pain Distress: None Mental Status: Positive for: Alert and Oriented X 3 - Systems Exam Head: Present: Atraumatic, Normocephalic Pupils: Present: PERRL Extroacular Muscles: Present: EOMI Conjunctiva: Present: Normal Mouth: Present: Moist Mucous Membranes Respiratory/Chest: Present: Clear to Auscultation. No: Wheezes, Rhonchi Cardiovascular: Present: Regular Rate and Rhythm, Normal S1, S2. No: Murmurs Abdomen: No: Tenderness, Distention Upper Extremity: Present: Normal Inspection. No: Edema Lower Extremity: Present: NORMAL PULSES, Tenderness (right lower extremity). No : Normal Inspection (cellulitis of right lower extremity), Edema, CALF TENDERNESS, Mane's Sign Neurological: Present: GCS=15, CN II-XII Intact, Speech Normal Skin: Present: Warm, Erythematous (surrounding wound), Other (cellulitis of right lower extremity) Psychiatric: Present: Alert, Oriented x 3, Normal Insight, Normal Concentration Vital Signs Temp Pulse Resp BP Pulse Ox 07/30/17 08:59 90 16 128/75 99 07/30/17 07:54 98.0 F 90 18 125/78 98 Medical Decision Making Re-evaluation Time: 08:30 Reassessment Condition: Re-examined ED Course and Treatment: 05/24/18 08:17 Will give patient prescription for clindamycin for 10 days, patient instructed to return to ED if symptoms do not begin to improve within 3 days. (Apolinar Gibbons) 07/30/17 In agreement with resident note, which includes further HPI details. Patient was seen and evaluated with resident, came up with plan and treatment together. Leg wound has approx 2cm ulcer with mild surrounding cellulitis. No area of fluctuance. Patient denies any fever, chills or bodyaches. No trauma. Will tx with Clindaymycin. Patient is allergic to PCN. Instructed in detail to make sure he takes the abx and to return to the ED if symptoms worsen, if redness worsens, if swelling occurs, if discharge occures, fever occurs or any other concern. ([place] Jay) - Medication Orders Current Medication Orders: Discontinued Medications Clindamycin HCl (Cleocin) 450 mg PO STAT STA PRN Reason: Protocol Stop: 07/30/17 08:51 Last Admin: 07/30/17 08:57 Dose: 450 mg Disposition/Present on Arrival - Present on Arrival Any Indicators Present on Arrival: No History of DVT/PE: No History of Uncontrolled Diabetes: No Urinary Catheter: No History of Decub. Ulcer: No History Surgical Site Infection Following: None - Disposition Have Diagnosis and Disposition been Completed?: Yes Disposition Time: 09:04 Patient Plan: Discharge - Disposition Diagnosis: Cellulitis Disposition: HOME/ ROUTINE Condition: GOOD Discharge Instructions (ExitCare): Cellulitis (ED) Additional Instructions: Mr Dean, thank you for letting us take care of you today. Your provider was Dr. Jay. You were treated for Cellulitis. The emergency medical care you received today was directed at your acute symptoms. If you were prescribed any medication, please fill it and take as directed. It may take several days for your symptoms to resolve. Return to the Emergency Department if your symptoms worsen, do not improve, or if you have any other problems. Make sure to take antibiotics as prescribed. Return to the ED if symptoms worsen , don't improve, worsening and spreading redness, pus draining, fever or any other concern. Please contact your doctor or call one of the physicians/clinics you have been referred to that are listed on the Patient Visit Information form that is included in your discharge packet. Bring any paperwork you were given at discharge with you along with any medications you are taking to your follow up visit. Our treatment cannot replace ongoing medical care by a primary care provider (PCP) outside of the emergency department. Thank you for allowing the [facility] team to be part of your care today. If you had an X-Ray or CT scan: A Radiologist will review the ED reading if any change in treatment is needed we will contact you. If you had a blood, urine, or wound culture: It will take several days for the results, if any change in treatment is needed we will contact you. If you had an STI test: It will take 48 hours for the results. Please call after 1 week if you have not heard back. Prescriptions: Clindamycin [Cleocin] 450 mg PO Q6 10 Days #40 cap Referrals: Wade Willis MD [Primary Care Provider] - Follow up with primary Forms: [employer] (Lao), WORK NOTE
[2017-07-30 09:00] VITALS: BP 128/75; RESP 16; O2SAT 99
== END 2017-07-30 09:07 | disposition home or self-care (01) ==
LOC: ED 07:15
DX: L03.115 Cellulitis of right lower limb (principal); I10 Essential (primary) hypertension

== ENCOUNTER 2018-04-17 10:19 | Emergency (ER) | payer OTHER ==
[2018-04-17 10:26] VITALS: RESP 18; TEMP 97.6; O2SAT 98
--- NOTE | 2018-04-17 10:45 | ED PDOC ---
Arrival/HPI - General Chief Complaint: Lower Extremity Problem/Injury Time Seen by Provider: 04/17/18 10:20 Historian: Patient - History of Present Illness Narrative History of Present Illness (Text): 04/17/18 10:42 A 47 year old male, whose past medical history includes asthma, hypogylcemia, and hypertension, presents to the emergency department complaining of left knee pain for 1 week. Patient reports left knee pain gradually worsened, eventually turning erythematous 2 days ago. Also patient mentions having small "hole" on left knee where white pus and some blood came out when knee became red. Patient denies any injury/trauma, fever, or any other complaints at this time. Denies any past surgeries to left knee. PMD: Dr. Willis 04/18/18 09:44 Past Medical History - Provider Review Nursing Documentation Reviewed: Yes - Infectious Disease Hx of Infectious Diseases: None - Cardiac Hx Hypertension: Yes - Pulmonary Hx Asthma: Yes - Renal Hx Renal Disorder: (hypoglycemia) - Endocrine/Metabolic Other/Comment: hypoglycemia - Hematological/Oncological Hx Blood Transfusions: No - Integumentary Hx Dermatological Disorder: Yes (MRSA) - Musculoskeletal/Rheumatological Hx Falls: No - Psychiatric Hx Depression: No Hx Emotional Abuse: No Hx Physical Abuse: No Hx Substance Use: No - Surgical History Other/Comment: 2014: Pt. had cellulitis in left leg. Hospitalized in [facility] [place]. - Anesthesia Hx Anesthesia Reactions: Yes (vomiting) - Suicidal Assessment Feels Threatened In Home Enviroment: No Family/Social History - Physician Review Nursing Documentation Reviewed: Yes Family/Social History: No Known Family HX Smoking Status: Never Smoked Hx Alcohol Use: Yes Frequency of alcohol use: Socially Hx Substance Use: No Hx Substance Use Treatment: No Allergies/Home Meds Allergies/Adverse Reactions: Allergies Iodine and Iodide Containing Produc Allergy (Intermediate, Verified 04/17/18 10:26) COUGH Sweating, cold, clammy skin peanut Allergy (Verified 04/17/18 10:26) URTICARIA Penicillins Allergy (Verified 04/17/18 10:26) RASH Home Medications: Home Meds Medication Instructions Recorded Confirmed Albuterol Sulfate [Albuterol 0.09 mg IH DAILY PRN 08/17/11 04/17/18 Sulfate Hfa] Metoprolol Succinate XL [Toprol XL] 50 mg PO DAILY 12/14/16 04/17/18 amLODIPine [Norvasc] 5 mg PO DAILY 12/14/16 04/17/18 Review of Systems - Physician Review All systems were reviewed & negative as marked: Yes - Review of Systems Constitutional: Night Sweats (last night). absent: Fevers Musculoskeletal: Other (left knee pain with erythema, limited ROM to knee secon hiren to pain.) Physical Exam Vital Signs Reviewed: Yes Vital Signs Temp Pulse Resp BP Pulse Ox 04/17/18 10:22 97.6 F 97 H 18 126/86 98 Temperature: Afebrile Blood Pressure: Normal Pulse: Regular Respiratory Rate: Normal Appearance: Positive for: Well-Appearing, Non-Toxic, Comfortable Pain Distress: None Mental Status: Positive for: Alert and Oriented X 3 - Systems Exam Head: Present: Atraumatic, Normocephalic Pupils: Present: PERRL Extroacular Muscles: Present: EOMI Conjunctiva: Present: Normal Mouth: Present: Moist Mucous Membranes Neck: Present: Normal Range of Motion Respiratory/Chest: Present: Clear to Auscultation, Good Air Exchange. No: Respiratory Distress, Accessory Muscle Use Cardiovascular: Present: Regular Rate and Rhythm, Normal S1, S2. No: Murmurs Abdomen: No: Tenderness, Distention, Peritoneal Signs Back: Present: Normal Inspection Upper Extremity: Present: Normal Inspection. No: Cyanosis, Edema Lower Extremity: Present: Erythema (left knee) Neurological: Present: GCS=15, CN II-XII Intact, Speech Normal Skin: Present: Warm, Dry, Normal Color. No: Rashes Psychiatric: Present: Alert, Oriented x 3, Normal Insight, Normal Concentration Medical Decision Making ED Course and Treatment: 04/17/18 10:46 Impression: 47 year old male with left knee pain and erythema. Plan: -- Left Knee X-Ray -- Reassess and disposition Prior Visits: Notes and results from previous visits were reviewed. Patient was last seen here on 07/30/2017 for pimple on right lower mid calf. Patient was discharged home. Progress Notes: 04/17/2018 12:39 Left Knee X-Ray IMPRESSION: There is soft tissue swelling anterior to the patella with small collections of air. Findings suspicious for bursitis or cellulitis. Dictator: Wade Briggs MD 04/18/18 09:44 case discussed with pts ortho dr terrell who eval pt bedside. aspriated bursa. suspects infected bursa, culture sent. states pt can be dc home with antibiotic trial. strct return precautions. at this time no pain with rom, low clincal suspcion for septic knee - RAD Interpretation Radiology Orders: 04/17/18 10:38 KNEE LEFT 2 VIEWS (AP & LAT) [RAD] Stat - Scribe Statement The provider has reviewed the documentation as recorded by the Scribe Ivon Simons Provider Scribe Attestation: All medical record entries made by the Scribe were at my direction and personally dictated by me. I have reviewed the chart and agree that the record accurately reflects my personal performance of the history, physical exam, medical decision making, and the department course for this patient. I have also personally directed, reviewed, and agree with the discharge instructions and disposition. Disposition/Present on Arrival - Present on Arrival Any Indicators Present on Arrival: No History of DVT/PE: No History of Uncontrolled Diabetes: No Urinary Catheter: No History of Decub. Ulcer: No History Surgical Site Infection Following: None - Disposition Have Diagnosis and Disposition been Completed?: Yes Diagnosis: Bursitis Disposition: HOME/ ROUTINE Disposition Time: 12:00 Condition: STABLE Discharge Instructions (ExitCare): Bursitis (DC) Additional Instructions: follow up with ortho tommorow. return to er with any worsening. Prescriptions: Clindamycin [Cleocin] 300 mg PO TID #30 cap Referrals: Wade Danielle DO [Staff Provider] - Follow up with primary Forms: [employer] (Lao), WORK NOTE
[2018-04-17 11:13] LABS: BASO # 0.02 K/mm3 (0.0-2.0); BASO % 0.1 % (0.0-3.0); EOS # 0.4 (0.0-0.7); EOS % 2.4 % (1.5-5.0); HEMOGLOBIN 14.1 g/dL (14.0-18.0); LYMPH # 1.2 (1.2-3.4); LYMPH % 6.7 % (22.0-35.0); MEAN CELL VOLUME 84.5 fl (80.0-105.0); MEAN CORPUSCULAR HEMOGLOBIN 27.3 pg (25.0-35.0); MEAN CORPUSCULAR HGB CONC 32.3 g/dl (31.0-37.0); MEAN PLATELET VOLUME 9.2 fl (7.0-11.0); MONO # 1.2 (0.1-0.6); MONO % 6.6 % (1.0-6.0); RBC 5.17 10^6/uL (3.5-6.1); RED CELL DISTRIBUTION WIDTH 14.3 % (11.5-14.5); WHITE BLOOD COUNT 17.5 10^3/uL (4.5-11.0)
[2018-04-17 11:15] LABS: ALBUMIN 4.3 g/dL (3.0-4.8); BLOOD UREA NITROGEN 11 mg/dL (7-21); CALCIUM 9.7 mg/dL (8.4-10.5); GFR NON-AFRICAN AMERICAN > 60
[2018-04-17 11:16] LABS: ALB/GLOB RATIO 1.3 (1.1-1.8); ALT/SGPT 18 U/L (7-56); AST/SGOT 21 U/L (17-59); INR 1.15; PARTIAL THROMBOPLASTIN TIME 31.1 Seconds (26.9-38.3)
[2018-04-17] MEDS ORDERED: Tmp-Smz 800 mg-160 mg DS Tab PO STA (11:27)
[2018-04-17] MEDS ORDERED: Bupivacaine 0.5% Inj(30mL) IJ ONE (11:45)
[2018-04-17] MEDS ORDERED: MethylPREDNISolone Depo 40 mg/ml Inj IM ONE (11:45)
--- NOTE | 2018-04-17 12:43 | RAD ---
Date of service: 04/17/2018 PROCEDURE: Left Knee Radiographs. HISTORY: Pain. COMPARISON: None. FINDINGS: BONES: Normal. No fracture. JOINTS: Normal. No osteoarthritis. JOINT EFFUSION: None. OTHER FINDINGS: None. IMPRESSION: There is soft tissue swelling anterior to the patella with small collections of air. Findings suspicious for bursitis or cellulitis.
[2018-04-17 12:59] VITALS: BP 119/70; PULSE 88
--- NOTE | 2018-04-19 08:18 | CON ---
DATE: 04/17/2018 HISTORY OF PRESENT ILLNESS: The patient is a 47-year-old male with a history of left prepatellar bursitis pain with inflammation for 3 days. No drainage at this time. He has no symptoms of knee joint infection as I can move the knee around. There is no effusion in the knee joint prepatellar bursal erythema and tenderness with very little swelling at this time and what I did is aspirated the bursa region and got no fluid, but I put in some sterile saline and took out about a 1 mL of fluid and sent that to the lab for culture. used marcain for the pain, Depo-Medrol for the inflammation. He is able to move the knee well, could ambulate well, we will put some bandage on and not use an Eder bandage. I will talk to him anytime if the pain gets worse, otherwise, he had to call me up Thursday to see how his knee is. The ER doctor is going to put him on some Bactrim p.o. as HE IS ALLERGIC TO PENICILLIN. FINAL DIAGNOSES: Prepatellar bursitis to evaluate for infection with a culture in and out and see him as an outpatient for inflammatory prepatellar bursitis left knee. Wade Danielle DO MTDAngela
== END 2018-04-17 13:10 | disposition home or self-care (01) ==
LOC: ED 10:19
DX: M71.9 Bursopathy, unspecified (principal); I10 Essential (primary) hypertension; J45.909 Unspecified asthma, uncomplicated